=== PATIENT | male | born 2000 | race Two or more races ===

== ENCOUNTER → 2018-05-22 | Outpatient (REF) | payer OTHER | LOC: M LAB REF 16:43 | DX: J06.9 Acute upper respiratory infection, unspecified (principal) ==

== ENCOUNTER → 2020-06-03 | Outpatient (CLI) | payer SELFPAY | LOC: M LABSMTC 12:22 | PROVIDERS: ATTEND Pediatrics | DX: Z20.828 Contact with and (suspected) exposure to other viral communicable diseases (principal) ==

== ENCOUNTER → 2020-06-20 | Outpatient (CLI) | payer SELFPAY | LOC: M LABSMTC 12:54 | PROVIDERS: ATTEND Pediatrics | DX: Z11.59 Encounter for screening for other viral diseases (principal) ==

== ENCOUNTER → 2020-07-22 | Outpatient (CLI) | payer SELFPAY | LOC: M LABSMTC 11:58 | PROVIDERS: ATTEND Pediatrics | DX: Z20.822 Contact with and (suspected) exposure to COVID-19 (principal) ==

== ENCOUNTER 2020-10-26 22:06 | Emergency (ER) | payer OTHER ==
[~2020-10-26] VITALS: Ht 180.3 cm; Wt 86.0 kg
[2020-10-26 22:07] VITALS: BP 140/82
[2020-10-26] MEDS ORDERED: MUCI1TAB16 PO (22:14)
[2020-10-26] MEDS ORDERED: ALBU83IN NEB (22:15)
[2020-10-27 00:50] LABS: RSV AMPLIFICATION NEGATIVE (NEGATIVE)
--- NOTE | 2020-10-27 01:19 | REPVR ---
PROCEDURE INFORMATION: Exam: XR Chest Exam date and time: 10/27/2020 12:42 AM Age: 20 years old Clinical indication: Shortness of breath TECHNIQUE: Imaging protocol: XR of the chest. Views: 1 view. COMPARISON: No relevant prior studies available. FINDINGS: Lungs: Unremarkable. No consolidation. Pleural spaces: Unremarkable. No pleural effusion. No pneumothorax. Heart/Mediastinum: Unremarkable. No cardiomegaly. Bones/joints: Unremarkable. IMPRESSION: No acute infiltrates. Electronically signed by: Dustin Samuels On 10/27/2020 01:18:44 AM
[2020-10-27] MEDS ORDERED: VENTAER INH (02:20)
[2020-10-27] MEDS ORDERED: AZIT-12 PO (02:20)
[2020-10-27] MEDS ORDERED: PRED20TA PO (02:20)
--- NOTE | 2020-10-27 06:43 | ECGEPIP ---
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
== END 2020-10-27 02:56 | disposition home or self-care (01) ==
LOC: M ED 22:06
DX: J20.9 Acute bronchitis, unspecified (principal); J45.909 Unspecified asthma, uncomplicated

== ENCOUNTER → 2020-11-03 | Outpatient (REF) | payer OTHER ==
[~2020-11-03] MED LIST: ALBU83IN NEB; AZIT-12 PO; MUCI1TAB16 PO; PRED20TA PO; VENTAER INH
[2020-11-03 14:00] LABS: ALT/SGPT 49 U/L (12-78); BILIRUBIN,TOTAL 0.7 MG/DL (0.2-1.0); BLOOD UREA NITROGEN 9 MG/DL (7-18); CALCIUM LEVEL 10.5 MG/DL (8.5-10.1); CARBON DIOXIDE LEVEL 30 MEQ/L (21-32); CHLORIDE LEVEL 102 MEQ/L (98-107); CREATININE FOR GFR 0.83 MG/DL (0.70-1.30); GLOMERULAR FILTRATION RATE > 60.0 (>60); GLUCOSE, FASTING 98 MG/DL (70-100); POTASSIUM SERUM 4.5 MEQ/L (3.5-5.1); SODIUM LEVEL 139 MEQ/L (136-145); TOTAL PROTEIN 8.3 GM/DL (6.4-8.2)
[2020-11-03 17:20] LABS: HEMOGLOBIN A1c 4.8 %
== END ==
LOC: M SFHCPLAZ 09:43
PROVIDERS: ATTEND Nurse Practitioner Adult Health
DX: Z00.00 Encounter for general adult medical examination without abnormal findings (principal); Z13.1 Encounter for screening for diabetes mellitus

== ENCOUNTER → 2020-12-03 | Outpatient (CLI) | payer OTHER ==
--- NOTE | 2020-12-03 12:17 | PFTRPT ---
Height: 71.00 Inches Weight: 184.00 Lbs BSA: 2.04 Diagnosis: R06.02 DATE: 12/03/2020 ORDERED BY: DEEDEE Hoff Pre and post bronchodilator studies have excellent technical quality. Some mild difficulty with effort is noted. Forced vital capacity is normal. FEV1 is in proportion. Obstructive index is therefore normal. Expiratory limit of the flow-volume loop is normal. No significant bronchodilator response is identified. Total lung capacity is normal. Residual volume is in proportion. Diffusing capacity is normal. No hemoglobin available for correction. Airway resistance and conductance are normal. IMPRESSION: Normal study. MTDD
== END ==
LOC: M CARPUL 11:41
PROVIDERS: ATTEND Nurse Practitioner Adult Health
DX: R06.02 Shortness of breath (principal)

== ENCOUNTER → 2020-12-24 | Outpatient (CLI) | payer OTHER ==
[~2020-12-24] MED LIST changes: +METHACHOLINE KIT (J7674) INH ONE
--- NOTE | 2020-12-24 11:25 | PFTRPT ---
Height: 71.00 Inches Weight: 184.00 Lbs BSA: 2.04 Diagnosis: R06.02 DATE: 12/24/2020 ORDERED BY: DEEDEE Hoff QUALITY: Study of excellent technical quality. PROCEDURE: Under protocol, methacholine was administered. At a dose of 2.5 mg or 13.875 CDUs, a 24% decline in the FEV1 was noted. PC of 1.54 is significant. Flow rates did return to baseline post bronchodilator administration. IMPRESSION: Positive methacholine challenge study. MTDD
== END ==
LOC: M CARPUL 10:41
PROVIDERS: ATTEND Nurse Practitioner Adult Health
DX: R06.02 Shortness of breath (principal)
CPT/HCPCS: 94070; 95070; J7674

== ENCOUNTER → 2021-01-28 | Outpatient (CLI) | payer OTHER ==
[~2021-01-28] MED LIST changes: -METHACHOLINE KIT (J7674) INH ONE
--- NOTE | 2021-01-28 16:01 | REP ---
INDICATION: LT TESTICULAR PAIN. COMPARISON: None. TECHNIQUE: Bilateral testicular ultrasound FINDINGS: The right testicle measures 5 x 2.3 x 3.4 cm and left measures 5.2 x 2.6 x 3.4 cm. The testicular parenchymal echo pattern and vascular pattern is within normal limits bilaterally. Incidental note is made of tiny bilateral spermatoceles 3 mm on the right and 5 mm on the left. There is no evidence of a varicocele. The right testicular RI is 0.53 and the left is 0.57. IMPRESSION: Within normal limits. Incidental bilateral tiny spermatoceles <Electronically signed by Sridhar Rogers > 01/28/21 [id number]
== END ==
LOC: M RAD 14:58
PROVIDERS: ATTEND Nurse Practitioner Adult Health
DX: N50.812 Left testicular pain (principal)